=== PATIENT | female | born 1995 ===

== ENCOUNTER 2023-10-02 10:00 | Inpatient (IN) | payer OTHER ==
[2023-10-02] MEDS ORDERED: morphine SULFATE/PF 1 MG/2 ML (2cc Syringe - QUVA) ONE ×2 (11:25→15:59)
[2023-10-02] MEDS ORDERED: FENTANYL CITRATE/PF 50 MCG/ML VIAL ONE ×2 (11:25→15:59)
[2023-10-02] MEDS: ELECTROLYTE-148 SOLN 500 ML IV ONE (11:30)
[2023-10-02 11:44] VITALS: BMI 24.3
[2023-10-02 12:05] LABS: BASO % 0.3 % (0-2.0); EOS % 0.4 % (0-4.5); HEMATOCRIT 39.2 % (32.4-45.2); HEMOGLOBIN 13.4 GM/dL (10.7-15.3); LYMPH % 16.1 % (8-40); MCH 31.3 pg (25.7-33.7); MCHC 34.1 g/dl (32.0-36.0); MEAN CELL VOLUME 91.8 fl (80-96); MEAN PLT VOLUME 9.2 fl (7.5-11.1); MONO % 7.1 % (3.8-10.2); NEUT % 76.1 % (42.8-82.8); PLATELET COUNT 206 10^3/uL (134-434); RBC 4.27 M/mm3 (3.60-5.2); RDW 13.5 % (11.6-15.6); WHITE BLOOD COUNT 9.3 K/mm3 (4.0-10.0)
[2023-10-02 12:08] LABS: INR 0.97 (0.83-1.09); PROTHROMBIN TIME (PATIENT) 11.2 SEC (9.7-13.0)
[2023-10-02 12:11] LABS: ACTIVATED PTT 28.5 SECONDS (25.2-36.5)
[2023-10-02] MEDS: CITRIC ACID/SODIUM CITRATE 30 ML UNIT-DOSE CUP PO ONE (12:15)
[2023-10-02 12:21] LABS: POTASSIUM 3.8 mmol/L (3.5-5.1)
[2023-10-02 12:22] LABS: CALCIUM 8.6 mg/dL (8.5-10.1)
[2023-10-02 12:23] LABS: BLOOD UREA NITROGEN 6.5 mg/dL (7-18)
[2023-10-02] MEDS ORDERED: IBUPROFEN 600 MG TABLET (FP) PO PRN (12:25)
[2023-10-02] MEDS ORDERED: ONDANSETRON 4 MG/2 ML VIAL IVPUSH PRN (12:25)
[2023-10-02] MEDS ORDERED: ACETAMINOPHEN 325 MG TABLET (FP) PO PRN (12:25)
[2023-10-02 12:26] LABS: CREATININE 0.5 mg/dL (0.55-1.3)
[2023-10-02] MEDS: ELECTROLYTE-148 SOLN 1,000 ML IV SCH (12:45)
[2023-10-02 13:28] LABS: HIV INTERPRETATION NEGATIVE (NEGATIVE)
[2023-10-02] MEDS ORDERED: ELECTROLYTE-148 SOLN 1,000 ML IV SCH (14:00)
[2023-10-02] MEDS ORDERED: ceFAZolin SODIUM 1 GM VIAL ONE (16:13)
[2023-10-02] MEDS ORDERED: OXYTOCIN 10 UNITS/ML VIAL ONE (16:16)
[2023-10-02] MEDS ORDERED: ONDANSETRON 4 MG/2 ML VIAL ONE (16:16)
[2023-10-02] MEDS ORDERED: DEXAMETHASONE SOD PHOSPHATE 4 MG/1 ML VIAL ONE (16:16)
[2023-10-02] MEDS ORDERED: KETAMINE HCL 200 MG/20 ML VIAL ONE (16:20)
[2023-10-02] MEDS ORDERED: ePHEDrine SULFATE 50 MG/1 ML AMPULE ONE (16:22)
[2023-10-02] MEDS ORDERED: OXYTOCIN 30 UNITS in 0.9% NS 30 UNIT/500 ML INFUS.BAG IVPB ONE (16:23)
[2023-10-02] MEDS ORDERED: MIDAZOLAM HCL 2 MG/2 ML SINGLE DOSE VIAL ONE (16:34)
[2023-10-02] MEDS ORDERED: METHYLERGONOVINE MALEATE 0.2 MG/1 ML AMP IM PRN (17:07)
[2023-10-02] MEDS ORDERED: IBUPROFEN 800 MG/8 ML IJ IVPB PRN (17:07)
[2023-10-02] MEDS ORDERED: OXYTOCIN 20 UNITS in 0.9% NS 20 UNIT/1,000 ML INFUS.BAG IV ONE (18:35)
[2023-10-02] MEDS: OXYTOCIN 20 UNITS in 0.9% NS 20 UNIT/1,000 ML INFUS.BAG IV SCH (18:39)
[2023-10-02] MEDS: ACETAMINOPHEN 1000 MG/100 ML BAG IVPB PRN (22:42)
[2023-10-03] MEDS ORDERED: oxyCODONE HCL 5 MG TABLET PO PRN (05:08)
[2023-10-03 08:44] LABS: BASO % 0.2 % (0-2.0); EOS % 0.1 % (0-4.5); HEMATOCRIT 33.4 % (32.4-45.2); HEMOGLOBIN 11.3 GM/dL (10.7-15.3); LYMPH % 11.5 % (8-40); MCH 30.9 pg (25.7-33.7); MCHC 33.8 g/dl (32.0-36.0); MEAN CELL VOLUME 91.2 fl (80-96); MONO % 9.4 % (3.8-10.2); NEUT % 78.8 % (42.8-82.8); PLATELET COUNT 177 10^3/uL (134-434); RBC 3.66 M/mm3 (3.60-5.2); RDW 13.3 % (11.6-15.6); WHITE BLOOD COUNT 15.8 K/mm3 (4.0-10.0)
[2023-10-03] MEDS: IBUPROFEN 600 MG TABLET (FP) PO PRN (10:10)
[2023-10-03] MEDS: PRENATAL VITAMINS W/ FOLIC ACID TABLET (FP) PO SCH (10:10)
[2023-10-03] MEDS: FERROUS SO4 325 MG TABLET (FP) PO SCH (10:10)
[2023-10-03] MEDS: SIMETHICONE 80 MG TAB.CHEW (FP) PO PRN (10:10)
[2023-10-03] MEDS ORDERED: BISACODYL 10 MG SUPP.RECT RC PRN (17:08)
[2023-10-03] MEDS: SENNOSIDES/DOCUSATE COMBO (SENNA PLUS) TABLET (UD) PO PRN (20:00)
[2023-10-03] MEDS: oxyCODONE HCL 5 MG TABLET PO PRN (20:45)
[2023-10-04] MEDS: ACETAMINOPHEN 325 MG TABLET (FP) PO PRN (22:13)
[2023-10-05] MEDS ORDERED: DIPHTH,PERTUSS(ACELL),TET 0.5 ML DISP.SYRIN IM ONE (10:00)
[2023-10-05] MEDS: DIPHTH,PERTUSS(ACELL),TET 0.5 ML DISP.SYRIN IM ONE (10:02)
[2023-10-05 12:15] VITALS: BP 106/82; PULSE 82; RESP 16; TEMP 98
== END 2023-10-05 14:10 | disposition home or self-care (01) | DRG 540 ==
LOC: JLDR 10:00 → J3W 20:00
PROVIDERS: ADMIT Obstetrics & Gynecology; ATTEND Obstetrics & Gynecology
PROC: 10D00Z1 Extraction of Products of Conception, Low, Open Approach (ICD-10-PCS; principal; 2023-10-02)
DX: O42.02 Full-term premature rupture of membranes, onset of labor within 24 hours of rupture (principal); Z3A.39 39 weeks gestation of pregnancy; Z37.0 Single live birth
CPT/HCPCS: 36415; 59409; 80048; 85025; 85610; 85730; 86780; 86850; 86900; 86901; 87389; 88307-TC; 90715; 94010; J0131